=== PATIENT | female | born 1985 | race Caucasian/White ===

== ENCOUNTER 2016-07-12 09:28 | Emergency (ER) | payer SELFPAY ==
[2016-07-12 09:40] VITALS: BP 142/80
--- NOTE | 2016-07-12 10:17 | UC ---
Hand/Wrist HPI - HPI Summary HPI Summary: 30 yo femal injuried right thumb (base of 1st MC) about 1 1/2 mos ago (during sz ) she is right handed had marked bruising/swelling has been wearing a brace pain persists no thumb strength unable to electronic calibration technician/grab/lift - History Of Current Complaint Chief Complaint: UCUpperExtremity Stated Complaint: WRIST AND THUMB PAIN Time Seen by Provider: 07/12/16 09:58 Hx Obtained From: Patient Hx Last Menstrual Period: 06/28/16 Onset/Duration: Sudden Onset, Lasting Weeks Severity Initially: Severe Severity Currently: Moderate Pain Intensity: 4 Pain Scale Used: 0-10 Numeric Character Of Pain: Aching, Throbbing Aggravating Factor(s): Movement, Lifting, Pulling Alleviating: Rest Associated Signs And Symptoms: Positive: Swelling - initially, Bruising - initially Related History: Dominant Hand Right - Allergies/Home Medications Allergies/Adverse Reactions: Allergies Allergy/AdvReac Type Severity Reaction Status Date / Time Carbamazepine [From Tegretol] Allergy Intermediate Rash Verified 11/22/14 12:36 Valproic Acid [From Depakote] Allergy Intermediate Rash Verified 11/22/14 12:36 Home Medications: Home Medications Lamotrigine [Lamictal] 75 mg PO 07/12/16 [History] PMH/Surg Hx/FS Hx/Imm Hx Previously Healthy: Yes Neurological History Of: Reports: Seizures Psychological History Of: Reports: Anxiety - Surgical History Surgical History: Yes Surgery Procedure, Year, and Place: CSECTION X 3 - Family History Known Family History: Positive: Hypertension - Social History Alcohol Use: None Substance Use Type: None Smoking Status (MU): Current Every Day Smoker Type: Cigarettes Amount Used/How Often: 1/2 ppd Length of Time of Smoking/Using Tobacco: years Have You Smoked in the Last Year: Yes Household Exposure Type: Cigarettes - Immunization History Most Recent Influenza Vaccination: declined last season Most Recent Tetanus Shot: unsure, declined in Most Recent Pneumonia Vaccination: never Review of Systems Constitutional: Negative Skin: Bruising - resolved Eyes: Negative ENT: Negative Respiratory: Negative Cardiovascular: Negative Gastrointestinal: Negative Genitourinary: Negative Motor: Negative Neurovascular: Negative Musculoskeletal: Arthralgia Neurological: Negative Psychological: Negative All Other Systems Reviewed And Are Negative: Yes Physical Exam Triage Information Reviewed: Yes Appearance: Well-Appearing, No Pain Distress, Well-Nourished Vital Signs: Initial Vital Signs Temp 98.5 F 07/12/16 09:34 Pulse 88 07/12/16 09:34 Resp 18 07/12/16 09:34 BP 142/80 07/12/16 09:34 Pulse Ox 99 07/12/16 09:34 Vital Signs Reviewed: Yes Eyes: Positive: Conjunctiva Clear ENT: Positive: Hearing grossly normal. Negative: Nasal congestion, Nasal drainage, Trismus, Muffled/hoarse voice Neck exam: Normal Neck: Positive: Supple Respiratory: Positive: Lungs clear, Normal breath sounds, No respiratory distress Cardiovascular: Positive: RRR Musculoskeletal Exam: Normal Musculoskeletal: Positive: ROM Limited @ - right thumb Neurological: Positive: Alert, Other: - tender thenar eminence Psychological Exam: Normal Skin Exam: Normal Skin: Positive: rashes Hand/Wrist Course/Dx - Differential Dx/Diagnosis Provider Diagnoses: right thumb injury. suspect torn ligaments Discharge - Discharge Plan Condition: Stable Disposition: HOME Patient Education Materials: Skier's Thumb (ED) Referrals: Hugo Tucker MD [Medical Doctor] - As Soon As Possible (call today and make an appt for next week) Additional Instructions: thumb spica splint no fracture noted I am worried that you have torn some ligaments I suggest ortho follow up (Dr. Tucker)
--- NOTE | 2016-07-12 10:40 | RAD ---
INDICATION: Right hand pain. Injury 1 1/2 months ago COMPARISON: None TECHNIQUE: AP, lateral, and oblique views were obtained. FINDINGS: There are no acute bony findings. There is minor osteocytic change about the radiocarpal joint and there is minor cystic change involving the navicular. The soft tissues are normal. IMPRESSION: NO ACUTE BONY FINDINGS.
== END 2016-07-12 10:50 | disposition home or self-care (01) ==
LOC: UCEAST 09:28
DX: S69.91XA Unspecified injury of right wrist, hand and finger(s), initial encounter (principal); X58.XXXA Exposure to other specified factors, initial encounter; Y93.9 Activity, unspecified; Y92.9 Unspecified place or not applicable; Z88.8 Allergy status to other drugs, medicaments and biological substances; F17.210 Nicotine dependence, cigarettes, uncomplicated
CPT/HCPCS: 99213; G0463

== ENCOUNTER → 2016-07-23 10:09 | Day surgery (SDC) | payer MEDICAID ==
--- NOTE | 2016-07-18 09:46 | HP ---
PREOPERATIVE HISTORY AND PHYSICAL: DATE OF SURGERY/ADMISSION: 07/23/[address] [facility] NEUROLOGIST: Dr. Carmona. PRIMARY CARE PHYSICIAN: Dr. Barney. PROCEDURE: Right wrist de Quervain's release, ganglion cyst excision. CHIEF COMPLAINT: Right wrist pain, cyst right wrist. HISTORY OF PRESENT ILLNESS: This is a 30-year-old female, who complains of pain at the radial aspect of her right wrist. She also has a lump in the area as well and trouble with any motion of her thumb. This has been ongoing for approximately 6 weeks. She denies any specific injury. She has been wearing a thumb spica brace for several days now; however, it has not alleviated her symptoms. She denies any associated numbness or tingling. The pain is significant enough that she would like to proceed with surgical intervention at this time in the form of a right wrist de Quervain's release and also have the mass removed at the same time. PAST MEDICAL HISTORY: 1. History of seizure disorder, which started approximately 6 years ago. The patient reports she has had approximately 5 or 6 seizures, most recent one was 1 month ago. 2. Anxiety. PAST SURGICAL HISTORY: x3. CURRENT MEDICATIONS: Lorazepam 0.5 mg daily. ALLERGIES: 1. DEPAKOTE. 2. LEVETIRACETAM. Both cause throat swelling. FAMILY MEDICAL HISTORY: Brain cancer on paternal side. 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 She is a current smoker and reports smoking since age 12, approximately half pack per day. She denies recreational drug use. Alcohol intake on very rare occasion. REVIEW OF SYSTEMS: General: Negative for fevers, chills or night sweats. No known anesthesia problems. HEENT: Negative for headaches, lightheadedness or syncopal episodes. Integumentary: Negative for abrasions, lesions or open wounds. Cardiothoracic: Negative for chest pain, palpitations or edema. Negative for hypertension. Pulmonary: Negative for shortness of breath with exertion, chronic cough or COPD. GI: Negative for nausea, vomiting, diarrhea, constipation or GERD. : Negative for nocturia, urinary frequency, urgency, history of UTIs or kidney problems. Musculoskeletal: Positive for current complaint. Negative for chronic or intermittent back pain or history of fractures. Neurological: Positive for history of seizures. Negative for paresthesias, numbness, history of stroke. Endocrine: Negative for diabetes or thyroid issues. Hematologic: Negative for easy bruising, anemia, excessive bleeding or history of DVT. Infectious Disease: Negative for history of MRSA, hepatitis C or HIV. PHYSICAL EXAMINATION GENERAL: A well-developed, well-nourished 30-year-old female, in no acute distress. VITAL SIGNS: Height 5 feet 6-1/2 inches, weight 145 pounds. Pulse rate 68, blood pressure 108/60. HEENT: Normocephalic, atraumatic. Pupils equal, round and reactive to light and accommodation. NECK: Supple. No palpable lymph nodes. Throat is clear. PULMONARY: Lungs are clear to auscultation bilaterally. No wheezes, rales or rhonchi. CARDIOTHORACIC: Regular rate and rhythm. S1 and S2. No murmurs, rubs or gallops. No edema. ABDOMEN: Positive bowel sounds. Soft, nontender. NEUROLOGIC: Alert and oriented x3. Cranial nerves II through XII are intact. Sensation is intact to light touch. MUSCULOSKELETAL: On exam of her right wrist, there is a ganglion cyst located on the volar radial aspect, which is minimally tender to palpation. She has marked tenderness of the first dorsal compartment and a positive Puma test. There is also mild swelling in the area. Neurovascular function is intact. Skin is intact. She had decreased range of motion and increased pain with motion of the right thumb. IMPRESSION: Right volar ganglion cyst and de Quervain's tenosynovitis. PLAN/RECOMMENDATIONS: The patient is scheduled to undergo a right wrist de Quervain's release, ganglion cyst excision with Dr. Tovar on 07/23/16. She will return to the office 10 to 14 days postop for followup and suture removal. A prescription for Tylenol No. 3 was e-scribed to the patient's pharmacy for postoperative pain management. The patient will obtain clearance from her primary care physician, Dr. Barney, prior to proceeding with surgery. MAMI NAGY [id number]/[facility] #: [id number] [facility] HOSPITALHuong
[~2016-07-23 10:09] MED LIST: Acetaminophen TAB* 325 MG PO PRN; Buffered Lidocaine 1% SYRIN* 3 ML/SYR SYRINGE INTRADERM ONE; DiMENhydriNATE IV* 50 MG/ML VIAL IV PUSH PRN; Famotidine IV* 10 MG/ML 2 ML (20 mg) ONE; Ketorolac INJ* 30 MG/ML 1 ML VIAL ONE; Lidocaine 1% INJ* 10 MG/ML 30 ML SDV ONE; Lidocaine 2% PF* 5 ML VIAL ONE; Midazolam* 1 MG/ML 2 ML VIAL (2 MG) ONE; Ondansetron INJ* 2 MG/ML VIAL IV PRN; PROCHLORPERAZINE INJ 5 MG/ML 2 ML VIAL IV PRN; Propofol* 10 MG/ML 20 ML BTL IV PUSH ONE; fentaNYL* 50 MCG/ML 2 ML VIAL (100 MCG VIAL) IV PRN; fentaNYL* 50 MCG/ML 2 ML VIAL (100 MCG VIAL) ONE; oxyCODONE TAB* 5 MG TAB PO PRN
[2016-07-23 14:31] VITALS: BP 118/67
--- NOTE | 2016-07-24 02:00 | OP ---
DATE OF OPERATION: 07/23/16 [facility] DATE OF : 83 SURGEON: Arabella Tovar MD RESIDENT SERVICES DIRECTOR: MAMI Prasad ANESTHESIOLOGIST: Dr. Feliz ANESTHESIA: Local MAC. PRE-OP DIAGNOSES: Right de Quervain's tenosynovitis and right wrist ganglion. POST-OP DIAGNOSES: Right de Quervain's tenosynovitis and right wrist ganglion. OPERATIVE PROCEDURE: Remove right wrist ganglion and right de Quervain's release. INDICATIONS: Aracelis is a 30-year-old female who has pain in the radial aspect of her right wrist. She has a palpable ganglion cyst and de Quervain's tenosynovitis by exam. She presents for de Quervain's release and ganglion cyst excision. ESTIMATED BLOOD LOSS: Zero. TOURNIQUET TIME: 15 minutes. DESCRIPTION OF PROCEDURE: The patient was brought to the operating room and was given a sedation anesthetic and a local infiltration of 10 cc of 1% plain lidocaine. The skin of her right upper extremity was prepped and draped in the usual sterile fashion. The hand and forearm were exsanguinated and the tourniquet elevated to 250 mmHg. A Chevron incision was made over the palpable cyst and we dissected bluntly through the subcutaneous tissue. The radial artery was retracted and the ganglion cyst, which was a broad-based cyst emanating from the volar wrist capsule, was removed with a small portion of the wrist capsule. The edges of the capsule were cauterized with a Bovie. Next, we retracted the skin and we were able to gain access to the first dorsal compartment. Branches of the radial sensory nerve were retracted. The first dorsal compartment was incised longitudinally, completely releasing the APL and EPB tendons, which were in good condition. There was a small amount of tenosynovitis. The wound was irrigated and the skin edges reapproximated with 4 -0 nylon suture. The wound was dressed with Xeroform, 4x4, Webril, and an Carmelo wrap. The patient tolerated the procedure well and was brought to the recovery room in good condition. [id number]/[facility] #: [id number] [facility]ENTER[facility]
== END | disposition home or self-care (01) ==
LOC: OREAST 10:09
PROVIDERS: ATTEND Orthopaedic Surgery
DX: M65.4 Radial styloid tenosynovitis [de Quervain] (principal); M67.431 Ganglion, right wrist; G40.909 Epilepsy, unspecified, not intractable, without status epilepticus; F41.9 Anxiety disorder, unspecified; F17.200 Nicotine dependence, unspecified, uncomplicated
CPT/HCPCS: 88304; J1885; J2001; J2250; J2704; J3010

== ENCOUNTER 2017-10-27 17:02 | Emergency (ER) | payer MEDICAID ==
[2017-10-27 17:17] VITALS: BP 160/100
[2017-10-27] MEDS ORDERED: Ibuprofen TAB* 600 MG PO ONE (17:18)
--- NOTE | 2017-10-27 17:47 | RAD ---
Indication: Right wrist pain 3 views of the wrist demonstrates no fracture. No other bone or joint abnormality is identified. IMPRESSION: NO FRACTURE OF THE WRIST IS NOTED.
--- NOTE | 2017-10-27 19:21 | UC ---
Janet Austin Emily, scribed for Darwin Pearce MD on 10/27/17 at 1719 . Hand/Wrist HPI - HPI Summary HPI Summary: This patient is a 32 year old F presenting to [facility] care with a chief complaint of R wrist pain that began 10/23/2017 after picking up a heavy container of ice cream. The patient rates the pain 7/10 in severity. Symptoms aggravated by movement. Symptoms alleviated by nothing. Patient reports edema and tingling in fingers. Pt reports she had a previous surgery, one year ago, on the R wrist due to an injured tendon and a cyst. She reports the symptoms being similar to the pain prior to surgery. Allergies reviewed. Medications reviewed. - History Of Current Complaint Stated Complaint: WRIST INJURY Time Seen by Provider: 10/27/17 17:12 Hx Obtained From: Patient Hx Last Menstrual Period: 06/28/16 ?: No Onset/Duration: Sudden Onset, Lasting Days, Still Present Severity Initially: Moderate Severity Currently: Moderate Pain Intensity: 7 Pain Scale Used: 0-10 Numeric Aggravating Factor(s): Movement Alleviating Factor(s): Nothing Associated Signs And Symptoms: Positive: Swelling, Numbness/Tingling - Allergies/Home Medications Allergies/Adverse Reactions: Allergies Allergy/AdvReac Type Severity Reaction Status Date / Time divalproex sodium Allergy Severe throat Verified 10/27/17 17:56 [From Depakote] swelling carbamazepine [From Tegretol] Allergy Intermediate Rash Verified 10/27/17 17:56 PMH/Surg Hx/FS Hx/Imm Hx Previously Healthy: No Neurological History: Seizures Psychological History: Anxiety - Surgical History Surgical History: Yes Surgery Procedure, Year, and Place: 2004, 2009, 2014 X 3 [facility] - Family History Known Family History: Positive: Hypertension - Social History Occupation: Unemployed Lives: With Family Alcohol Use: None Substance Use Type: None Smoking Status (MU): Light Every Day Tobacco Smoker Type: Cigarettes Amount Used/How Often: 1/2 ppd 15 YRS Length of Time of Smoking/Using Tobacco: years Have You Smoked in the Last Year: Yes Household Exposure Type: Cigarettes - Immunization History Most Recent Influenza Vaccination: declined last season Most Recent Tetanus Shot: unsure, declined in Most Recent Pneumonia Vaccination: never Review of Systems Musculoskeletal: Edema, Other: - Positive R wrist pain Neurological: Other - Positive tingling in fingers All Other Systems Reviewed And Are Negative: Yes Physical Exam - Summary Physical Exam Summary: General: well-appearing, no pain distress Skin: warm, color reflects adequate perfusion, dry Head: normal Eyes: EOMI, INEZ ENT: normal Neck: supple, nontender Respiratory: CTA, breath sounds present Cardiovascular: RRR Abdomen: soft, nontender Bowel: present Musculoskeletal: R wrist is swollen, worst swelling in the distal radius and base of the thumb. Tender to palpation at the swollen areas and with ROM of thumb and index fingers. Slightly decreased capillary refill of the thumb. No sensation deficit. Neurological: sensory/motor intact, A&O x3 Psychological: affect/mood appropriate Triage Information Reviewed: Yes Vital Signs: Initial Vital Signs Temp 99.6 F 10/27/17 17:10 Pulse 87 10/27/17 17:10 Resp 16 10/27/17 17:10 BP 160/100 10/27/17 17:10 Pulse Ox 99 10/27/17 17:10 Vital Signs Reviewed: Yes Diagnostics - Radiology Wrist XR Radiology Interpretation Completed By: Radiologist - Wrist XR reveals, per radiologist, no fracture of the wrist is noted. ED physician has reviewed this radiology report. Re-Evaluation - Re-Evaluation First Eval Re-Evaluation Time: 17:53 Change: Unchanged Comment: Discussed results and plan of care with pt Hand/Wrist Course/Dx - Course Course Of Treatment: THUMB SPICA SPLINT PLACED. F/U ORTHO; RECHECK SOONER IF NEEDED. - Differential Dx/Diagnosis Provider Diagnoses: RIGHT WRIST SPRAIN Discharge - Sign-Out/Discharge Documenting (check all that apply): Discharge/Admit/Transfer - Discharge Plan Condition: Stable Disposition: HOME Prescriptions: HYDROcodone/ACETAMIN 5-325 MG* [[place] 5-325 TAB*] 1 tab PO Q4H PRN #30 tab MDD 6 PRN Reason: Pain Naproxen [Naproxen Enteric Coated 500 MG TAB] 500 mg PO BID #30 tablet. Patient Education Materials: Wrist Sprain (ED) Referrals: Amarjit Barney MD [Primary Care Provider] - Arabella Tovar MD [Medical Doctor] - Additional Instructions: FOLLOW UP WITH ORTHOPEDICS. GET RECHECKED FOR ANY WORSENING OF YOUR CONDITION OR QUESTIONS OR CONCERNS. - Billing Disposition and Condition Condition: STABLE Disposition: Home The documentation as recorded by the Janet laguna Emily accurately reflects the service I personally performed and the decisions made by me, Darwin Pearce MD.
== END 2017-10-27 18:05 | disposition home or self-care (01) ==
LOC: UCEAST 17:02
DX: S63.501A Unspecified sprain of right wrist, initial encounter (principal); F17.210 Nicotine dependence, cigarettes, uncomplicated; Z88.8 Allergy status to other drugs, medicaments and biological substances; Z86.69 Personal history of other diseases of the nervous system and sense organs; X50.0XXA Overexertion from strenuous movement or load, initial encounter; Y92.9 Unspecified place or not applicable
CPT/HCPCS: 99213; A9270-GY; G0463

== ENCOUNTER 2018-01-30 10:48 | Emergency (ER) | payer OTHER ==
[2018-01-30 11:13] VITALS: BP 121/84
--- NOTE | 2018-01-30 11:21 | UC ---
UC General HPI - HPI Summary HPI Summary: Patient is complaining of 2 day history of sore throat, fever and some blisters to the top of her mouth on the left. She notes the blisters may have been irritation from her tongue ring which she has since removed area. Patient admits to congested cough and some wheezing. She denies any history of asthma but is a smoker. She did take an albuterol nebulizer treatment which she has for one of her children and notes that was very helpful and she raised large amount of sputum after. - History of Current Complaint Chief Complaint: UCRespiratory Stated Complaint: ST/COUGH/FEVER Time Seen by Provider: 01/30/18 11:09 Hx Obtained From: Patient, Family/Tilting Head Band Sawyer Hx Last Menstrual Period: 01/29/18 Onset/Duration: Gradual Onset Timing: Constant Pain Intensity: 5 Associated Signs & Symptoms: Positive: Cough, Fever - Allergy/Home Medications Allergies/Adverse Reactions: Allergies Allergy/AdvReac Type Severity Reaction Status Date / Time divalproex sodium Allergy Severe throat Verified 01/30/18 11:10 [From Depakote] swelling carbamazepine [From Tegretol] Allergy Intermediate Rash Verified 01/30/18 11:10 PMH/Surg Hx/FS Hx/Imm Hx Neurological History: Seizures - Surgical History Surgical History: Yes Surgery Procedure, Year, and Place: 2004, 2009, 2014 X 3 [facility]. right wrist 08/2016 - Family History Known Family History: Positive: Hypertension - Social History Lives: With Family Alcohol Use: Rare Substance Use Type: None Smoking Status (MU): Light Every Day Tobacco Smoker Type: Cigarettes Amount Used/How Often: 1/2 ppd 15 YRS Length of Time of Smoking/Using Tobacco: years Have You Smoked in the Last Year: Yes Household Exposure Type: Cigarettes - Immunization History Most Recent Influenza Vaccination: declined last season Most Recent Tetanus Shot: 2014 Most Recent Pneumonia Vaccination: never Vaccination Up to Date: Yes Review of Systems Constitutional: Negative Skin: Negative Eyes: Negative ENT: Sore Throat Respiratory: Shortness Of Breath, Cough Cardiovascular: Negative Gastrointestinal: Negative Genitourinary: Negative Motor: Negative Neurovascular: Negative Musculoskeletal: Negative Neurological: Negative Psychological: Negative Is Patient Immunocompromised?: No All Other Systems Reviewed And Are Negative: Yes Physical Exam Triage Information Reviewed: Yes Appearance: Well-Appearing Vital Signs: Initial Vital Signs Temp 99.5 F 01/30/18 11:07 Pulse 82 10/05/18 11:07 Resp 18 01/30/18 11:07 BP 121/84 01/30/18 11:07 Pulse Ox 100 01/30/18 11:07 Vital Signs Reviewed: Yes Eyes: Positive: Conjunctiva Clear ENT: Positive: Pharyngeal erythema, TMs normal, Other - Left side of the hard palate has 3 small areas were patient notes the blisters had ruptured. There is no drainage.. Negative: Nasal congestion, Nasal drainage Neck: Positive: Supple, Tenderness @ - Peritonsillar nodes which are enlarged Respiratory: Positive: Lungs clear, Normal breath sounds Cardiovascular: Positive: RRR, No Murmur Abdomen Description: Positive: Nontender, No Organomegaly, Soft Bowel Sounds: Positive: Present Musculoskeletal: Positive: ROM Intact Neurological: Positive: Alert Psychological: Positive: Age Appropriate Behavior Skin Exam: Normal Diagnostics - Laboratory Diagnostic Studies Completed/Ordered: rapid strep=neg Course/Dx - Course Course Of Treatment: rapid strep=neg. tx supportive. - Differential Dx - Multi-Symptom Provider Diagnoses: Pharyngitis, stomatitis, bronchitis Discharge - Sign-Out/Discharge Documenting (check all that apply): Patient Departure All imaging exams completed and their final reports reviewed: No Studies - Discharge Plan Condition: Stable Disposition: HOME Prescriptions: Albuterol HFA INHALER* [Ventolin HFA Inhaler*] 2 puff INH Q6H #1 mdi Magic Mouth Was-SHARLA/MAAL/LIDO* 5 ml SWISH SPIT QID 5 Days #120 ml Patient Education Materials: Acute Bronchitis (ED), Pharyngitis (ED) Referrals: Amarjit Barney MD [Primary Care Provider] - 7 Days - Billing Disposition and Condition Condition: STABLE Disposition: Home
== END 2018-01-30 11:57 | disposition home or self-care (01) ==
LOC: UCCORT 10:48
DX: J02.9 Acute pharyngitis, unspecified (principal); K12.1 Other forms of stomatitis; J40 Bronchitis, not specified as acute or chronic; F17.210 Nicotine dependence, cigarettes, uncomplicated; Z88.8 Allergy status to other drugs, medicaments and biological substances
CPT/HCPCS: 87651; 99212; G0463

== ENCOUNTER 2018-05-19 19:58 | Emergency (ER) | payer OTHER ==
[2018-05-19 20:10] VITALS: BP 131/90
[2018-05-19] MEDS ORDERED: Ketorolac INJ* 60 MG/2 ML VIAL IM ONE (20:29)
--- NOTE | 2018-05-19 20:54 | UC ---
Back Pain HPI - HPI Summary HPI Summary: ONSET OF RIGHT LOW BACK PAIN RADIATING DOWN HER LEG THAT STARTED 1 WEEK AGO. PATIENT DENIES ANY ACUTE INJURY OR TRAUMA ALTHOUGH SHE DOES STATE SHE MOVES THE FURNITURE AROUND HER HOUSE A LOT. SHE ALSO REPORTS A PALPABLE LUMP IN HER RIGHT LOW BACK WHICH SHE REPORTS IS TENDER AND SEEMS TO BE THE SOURCE OF MOST OF HER DISCOMFORT. NO WEAKNESS OR NUMBNESS. NO SADDLE ANESTHESIA. NO LOSS OF BOWEL OR BLADDER CONTROL. - History of Current Complaint Chief Complaint: UCBackPain Stated Complaint: HIP AND BACK INJURY Time Seen by Provider: 05/19/18 20:07 Hx Obtained From: Patient, Family/Harnessmaker - NIECE Hx Last Menstrual Period: last week Onset/Duration: Gradual Onset, Lasting Days, Still Present Timing: Constant Severity Initially: Moderate Severity Currently: Moderate Pain Intensity: 10 Pain Scale Used: 0-10 Numeric Back Pain: Is Discrete @ - RIGHT LOW BACK, Radiates To - LOWER LEG Character: Sharp Aggravating Factor(s): Movement Alleviating Factor(s): Rest, Position Associated Signs And Symptoms: Negative: Swelling, Redness, Weakness, Numbness, Tingling - Allergies/Home Medications Allergies/Adverse Reactions: Allergies Allergy/AdvReac Type Severity Reaction Status Date / Time divalproex sodium Allergy Severe throat Verified 05/19/18 20:03 [From Depakote] swelling carbamazepine [From Tegretol] Allergy Intermediate Rash Verified 05/19/18 20:03 Home Medications: Home Medications Lamotrigine XR (NF) [Lamictal XR (NF)] 125 mg PO DAILY 05/19/18 [History Confirmed 05/19/18] PMH/Surg Hx/FS Hx/Imm Hx Neurological History: Seizures - Surgical History Surgical History: Yes Surgery Procedure, Year, and Place: 2004, 2009, 2014 X 3 [facility]. tubes tied. right wrist 08/2016 - Family History Known Family History: Positive: Hypertension - Social History Alcohol Use: Rare Substance Use Type: Marijuana Smoking Status (MU): Light Every Day Tobacco Smoker Type: Cigarettes Amount Used/How Often: 1/2 ppd 15 YRS Length of Time of Smoking/Using Tobacco: years Have You Smoked in the Last Year: Yes Household Exposure Type: Cigarettes - Immunization History Most Recent Influenza Vaccination: declined last season Most Recent Tetanus Shot: 2014 Most Recent Pneumonia Vaccination: never Vaccination Up to Date: Yes Review of Systems All Other Systems Reviewed And Are Negative: Yes Constitutional: Positive: Negative Skin: Positive: Other - NODULE LOW BACK Respiratory: Positive: Negative Cardiovascular: Positive: Negative Gastrointestinal: Positive: Negative Musculoskeletal: Positive: Decreased ROM Neurological: Positive: Paresthesia Physical Exam Triage Information Reviewed: Yes Appearance: Well-Nourished, Pain Distress - MODERATE Vital Signs: Initial Vital Signs Temp 98.4 F 05/19/18 20:02 Pulse 90 05/19/18 20:02 Resp 18 05/19/18 20:02 BP 131/90 05/19/18 20:02 Pulse Ox 99 05/19/18 20:02 Vital Signs Reviewed: Yes Eyes: Positive: Conjunctiva Clear ENT: Positive: Hearing grossly normal Neck: Positive: Supple Respiratory: Positive: No respiratory distress, No accessory muscle use Cardiovascular: Positive: Pulses Normal, Brisk Capillary Refill Abdomen Description: Positive: Soft Musculoskeletal: Positive: No Edema, ROM Limited @ - BACK, Other: - TENDER FIBROUS NODULE IN SOFT TISSUES RIGHT LOW BACK Neurological: Positive: Alert, Other: - NEG STRAIGHT LEG RAISE Psychological: Positive: Normal Response To Family, Age Appropriate Behavior Skin: Negative: Rashes Back Pain Course/Dx - Course Course Of Treatment: PATIENT RECEIVED IM TORADOL TODAY. WILL TRY SKELAXIN AND PREDNISONE ALONG WITH NSAIDS. ALSO ADVISED STRETCHING, HEAT AND MASSAGE. IF HER SYMPTOMS DO NOT IMPROVE WITH THIS MANAGEMENT WOULD RECOMMEND SHE FOLLOW UP WITH HER PCP AND CONSIDER MORE ADVANCED IMAGING OF THE AREA. PT STATES HER FOOT FEELS COOL BUT ON EXAM IT IS PINK, 2+ DP PULSES AND BRISK CAP REFILL. LOW CONCERN FOR PVD. SHE DOES HAVE A PALPABLE NODULE IN THE RIGHT LOW BACK THAT IS TENDER. PATIENT STATES THAT THIS IS THE MAIN SOURCE OF HER DISCOMFORT. DISCUSSED THE POSSIBILITY OF A "BACK MOUSE" HOWEVER RECOMMENDED THAT MORE TRADITIONAL DIAGNOSES BE RULED OUT AND CONSIDERED PRIOR TO SETTLING ON THIS A DIAGNOSIS. - Differential Dx/Diagnosis Provider Diagnosis: Piriformis syndrome of right side Discharge - Sign-Out/Discharge Documenting (check all that apply): Patient Departure All imaging exams completed and their final reports reviewed: No Studies - Discharge Plan Condition: Stable Disposition: HOME Prescriptions: Metaxalone TAB* [Skelaxin TAB*] 800 mg PO BID PRN #30 tab PRN Reason: Pain Naproxen [Naproxen 500 mg tab] 500 mg PO BID PRN #30 tablet PRN Reason: Pain predniSONE TAB* [Deltasone 20 MG TAB*] 40 mg PO DAILY #10 tab Patient Education Materials: Piriformis Syndrome (ED) Referrals: Amarjit Barney MD [Primary Care Provider] - 1 Week Additional Instructions: FAILING IMPROVEMENT WITH TRADITIONAL CONSERVATIVE MANAGEMENT YOU MAY BENEFIT FROM MORE ADVANCED IMAGING AND CONSIDERATION OF BACK MOUSE THE CAUSE OF YOUR PAIN. BE SURE TO GO THROUGH SLOW RANGE OF MOTION AND STRETCHING EXERCISES DAILY. USE HEAT AND MASSAGE. BACK MOUSE Clinical findings of a rubbery, well-defined, often mobile, round or oval swelling in the deep subcutaneous tissues. Though these can be painful, they never show evidence of infection and are frequently asymptomatic. They occur most commonly in the sacroiliac region near the superior portion of the iliac crest. They are often palpated as rubbery nodules just under the skin. These nodules may mimic sciatic nerve root compression. They consist of a fibrous capsule containing fat divided by fibrous septa and some fine blood vessels and nerve fibers, and they usually have a stalk connecting them to the tissues below the deep fascial layers. The immediate relief of pain frequently produced by multiple needle puncture, compared with poor relief with a single puncture, suggests that the pain might be caused by raised intranodular pressure. - Billing Disposition and Condition Condition: STABLE Disposition: Home
--- NOTE | 2018-05-20 13:36 | UC ---
- Progress Note Progress Note: RECEIVED A CALL FROM PATIENT'S PHARMACY STATING THAT SKELAXIN IS NOT COVERED BY HER INSURANCE. REQUESTING CHANGE OF PRESCRIPTION TO TIZANIDINE. VERBAL ORDER GIVEN FOR TIZANIDINE 2 MG BY MOUTH 3 TIMES DAILY NEEDED. #20 WITH NO REFILLS. Course/Dx - Diagnoses Provider Diagnoses: Piriformis syndrome of right side Discharge - Sign-Out/Discharge Documenting (check all that apply): Post-Discharge Follow Up All imaging exams completed and their final reports reviewed: No Studies - Discharge Plan Condition: Stable Disposition: HOME Prescriptions: Metaxalone TAB* [Skelaxin TAB*] 800 mg PO BID PRN #30 tab PRN Reason: Pain Naproxen [Naproxen 500 mg tab] 500 mg PO BID PRN #30 tablet PRN Reason: Pain predniSONE TAB* [Deltasone 20 MG TAB*] 40 mg PO DAILY #10 tab Patient Education Materials: Piriformis Syndrome (ED) Referrals: Amarjit Barney MD [Primary Care Provider] - 1 Week Additional Instructions: FAILING IMPROVEMENT WITH TRADITIONAL CONSERVATIVE MANAGEMENT YOU MAY BENEFIT FROM MORE ADVANCED IMAGING AND CONSIDERATION OF BACK MOUSE THE CAUSE OF YOUR PAIN. BE SURE TO GO THROUGH SLOW RANGE OF MOTION AND STRETCHING EXERCISES DAILY. USE HEAT AND MASSAGE. BACK MOUSE Clinical findings of a rubbery, well-defined, often mobile, round or oval swelling in the deep subcutaneous tissues. Though these can be painful, they never show evidence of infection and are frequently asymptomatic. They occur most commonly in the sacroiliac region near the superior portion of the iliac crest. They are often palpated as rubbery nodules just under the skin. These nodules may mimic sciatic nerve root compression. They consist of a fibrous capsule containing fat divided by fibrous septa and some fine blood vessels and nerve fibers, and they usually have a stalk connecting them to the tissues below the deep fascial layers. The immediate relief of pain frequently produced by multiple needle puncture, compared with poor relief with a single puncture, suggests that the pain might be caused by raised intranodular pressure. - Billing Disposition and Condition Condition: STABLE Disposition: Home
== END 2018-05-19 20:54 | disposition home or self-care (01) ==
LOC: UCEAST 19:58
DX: G57.01 Lesion of sciatic nerve, right lower limb (principal); R56.9 Unspecified convulsions; Z88.8 Allergy status to other drugs, medicaments and biological substances; F17.210 Nicotine dependence, cigarettes, uncomplicated
CPT/HCPCS: 96372; 99212; G0463; J1885

== ENCOUNTER 2019-06-12 18:41 | Emergency (ER) | payer OTHER ==
--- OUTSIDE RECORDS SUMMARY | 2019-06-12 18:46 | XMS REPORT | Summary of Care ---
:1985 Author Organization [facility] Address [address] [facility] [address] [place] [address] Care Team Providers Name Role Phone Amarjit Barney Primary Care Provider Reason for Visit Reason Comments Medication Check pt presents for med check Encounter Details Date Type Department Care Team Description 04/16/2019 Office Visit [facility] Amarjit Barney MD Psychogenic nonepileptic seizure (Primary Dx); Practice [address] [facility] Tobacco user [address] [place] [address] [phone] Allergies Active Allergy Reactions Severity Noted Date Comments Depakote Anaphylaxis 10/24/2008 Sumatriptan Succinate Anaphylaxis 10/24/2008 documented as of this encounter (statuses as of 04/17/2019) Medications Medication Sig Dispensed Refills Start Date End Date Status nicotine Place 1 30 Patch 0 06/11/2018 Active transdermal Patch onto patch-daily skin DAILY. (NICODERM) 21 MG/24HR Transdermal PATCH 24 HR lamotrigine Take 1.5 45 Tab 2 02/25/2019 Active (LAMICTAL) 100 MG Tabs by Oral Tab mouth DAILY. escitalopram Take 1 Tab 30 Tab 1 04/16/2019 Active (LEXAPRO) 10 MG by mouth Oral Tab DAILY. LORazepam (ATIVAN) Take 1 Tab 45 Tab 0 04/16/2019 Active 1 MG Oral Tab by mouth EVERY EIGHT HOURS. Max Daily Amount: 3 mg. LORazepam (ATIVAN) Take 1 Tab 30 Tab 0 07/22/2016 04/16/2019 Discontinued 1 MG Oral Tab by mouth (Reorder) EVERY EIGHT HOURS. Max Daily Amount: 3 mg. oseltamivir Take 1 Cap 10 Cap 0 06/17/2018 04/16/2019 Discontinued (TAMIFLU) 75 MG by mouth Oral Cap DAILY. documented as of this encounter (statuses as of 04/17/2019) Active Problems Problem Noted Date Psychogenic nonepileptic seizure 04/17/2019 Tobacco user 12/17/2010 Pain in joint, shoulder region 03/26/2006 Insomnia Anxiety Headache(784.0) Seizure Overview: ROchestor testing=psychogenic but has abnml EEG as well documented as of this encounter (statuses as of 04/17/2019) Immunizations Name Administration Dates Next Due Influenza (IM) Preservative Free 02/15/2009 documented as of this encounter Social History Tobacco Use Types Packs/Day Years Used Date Current Every Day Smoker 1 15 Smokeless Tobacco: Never Used Tobacco Cessation: Ready to Quit: No; Counseling Given: Yes Alcohol Use Drinks/Week oz/Week Comments No 0 Standard drinks or equivalent 0.0 Sex Assigned at Date Recorded Not on file Job Start Date Occupation Industry Not on file Not on file Not on file Travel History Travel Start Travel End No recent travel history available. documented as of this encounter Last Filed Vital Signs Vital Sign Reading Time Taken Comments Blood Pressure 120/70 04/16/2019 11:28 AM EST Pulse 82 04/16/2019 11:28 AM EST Temperature - - Respiratory Rate - - Oxygen Saturation 99% 04/16/2019 11:28 AM EST Inhaled Oxygen Concentration - - Weight 69.6 kg (153 lb 6.4 oz) 04/16/2019 11:28 AM EST Height 172.1 cm (5' 7.75") 04/16/2019 11:28 AM EST Body Mass Index 23.5 04/16/2019 11:28 AM EST documented in this encounter Progress Notes Amarjit Barney MD - 04/16/2019 11:20 AM EST PATIENT: Aracelis Anderson : 1985 DATE OF SERVICE: 04/16/2019 CHIEF COMPLAINT: Chief Complaint Patient presents with Medication Check pt presents for med check Subjective HISTORY OF PRESENT ILLNESS: Aracelis Anderson is a 33-y.o. female. Has a hx of non elliptiform seizure like activity thought to be anxiety related. I ve tried celexa,and ativan in the past with limited success but hedged and tried lamictal as mood stablizer and anti epileptic medas the spells would have the family . She would use it however like a prn med . Pand been doing ok last few years But she has been having more stress with her dtr acting up . She is having spells especially when under stress So she restarted the lamictal but 150 mg a day and taking it regular at this dose she was having worse depression so she stopped it Her past included being raised in foster care and acting out as a teen. 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 Her dtr in some ways is acting like she did Past Medical History: Diagnosis Date Anxiety Back pain Epistaxis pyogenic granuloma tumpr Headache(784.0) Insomnia Pain in joint, shoulder region 03/26/2006 Seizure (HCC) ROchestor testing=psychogenic but has abnml EEG as well Tobacco abuse Family History Problem Relation Age of Onset Cancer Mother hx CA ? type Asthma Mother Allergies Mother Diabetes Mother GI Mother hx stomach problems Hypertension Mother Current Outpatient Medications Medication Sig lamotrigine (LAMICTAL) 100 MG Oral Tab Take 1.5 Tabs by mouth DAILY. LORazepam (ATIVAN) 1 MG Oral Tab Take 1 Tab by mouth EVERY EIGHT HOURS. Max Daily Amount: 3 mg. nicotine transdermal patch-daily (NICODERM) 21 MG/24HR Transdermal PATCH [address] 1 Patch onto skin DAILY. No current facility-administered medications for this visit. Allergies Allergen Reactions Depakote Anaphylaxis Sumatriptan Succinate Anaphylaxis Social History Socioeconomic History Marital status: Spouse name: Not on file Number of children: Not on file Years of education: Not on file Highest education level: Not on file Occupational History Not on file Social Needs Financial resource strain: Not on file Food insecurity Worry: Not on file Inability: Not on file Transportation needs Medical: Not on file Non-medical: Not on file Tobacco Use Smoking status: Current Every Day Smoker Packs/day: 1.00 Years: 15.00 Pack years: 15.00 Smokeless tobacco: Never Used Substance and Sexual Activity Alcohol use: No Alcohol/week: 0.0 standard drinks Drug use: No Sexual activity: Yes control/protection: Surgical Lifestyle Physical activity Days per week: Not on file Minutes per session: Not on file Stress: Not on file Relationships Social connections Talks on phone: Not on file Gets together: Not on file Attends jehovah's witness service: Not on file Active member of club or organization: Not on file Attends meetings of clubs or organizations: Not on file Relationship status: Not on file Intimate partner violence Fear of current or ex partner: Not on file Emotionally abused: Not on file Physically abused: Not on file Forced sexual activity: Not on file Other Topics Concern Back Care Not Asked Bike Helmet Not Asked Blood Transfusions Not Asked Caffeine Concern Yes Exercise Not Asked Hobby Hazards Not Asked International Travel Not Asked Service Not Asked Occupational Exposure Not Asked Seat Belt Not Asked Self-Exams Not Asked Sleep Concern Not Asked Special Diet Not Asked Stress Concern Not Asked Weight Concern Not Asked 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 last 2 weeks, have you been feeling down, depressed, anxious, or hopeless?: 2 Over the past 2 weeks, have you felt little interest or pleasure in doing things ?: 3 Trouble falling or staying asleep, or sleeping too much?: 3 Feeling tired or having little energy?: 3 Poor appetite or overeating?: 3 Feeling bad about yourself or that you are a failure or have let yourself or your family down?: 0 Trouble concentrating on things, such as reading the newspaper or watching TV?: 0 Moving or speaking so slowly that other people notice OR being fidgety and restless?: 0 Thoughts that you would be better off or of hurting yourself in some way?: 0 PHQ-9 TOTAL SCORE: 14 How difficult have these problems made it for you to do your work, take care of things at home or get along with people?: Very difficult In the past 2 years, have you felt depressed or sad most days, even if you felt ok?: No REVIEW OF SYSTEMS: ROS Objective PHYSICAL EXAM: VITALS: BP 120/70 (BP Location: Right arm, Patient Position: Sitting) | Pulse 82 | Ht 5' 7.75" (1.721 m) | Wt 153 lb 6.4 oz (69.6 kg) | SpO2 99% | BMI 23.50 kg/m Body mass index is 23.5 kg/m. Physical Exam Vitals signs reviewed. Constitutional: Appearance: She is not ill-appearing. Cardiovascular: Rate and Rhythm: Normal rate and regular rhythm. Pulmonary: Effort: Pulmonary effort is normal. No respiratory distress. Psychiatric: Comments: Dress and hygiene good Good eye contact Thoughts and speech normal Affect Appropriate Mood stressed ASSESSMENT / IMPRESSION: ICD-9-CM ICD-10-CM 1. Psychogenic nonepileptic seizure I still will hedge with lamictal as mood stablizer but 50 mg a day and start lexapro and give prn ativan as before . follow up 1 month 300.11 F44.5 2. Tobacco user Ready to quit: No Counseling given: Yes 305.1 Z72.0 Plan Author: Amarjit Barney MD 04/16/2019 11:47 documented in this encounter Plan of Treatment Date Type Specialty Care Team Description 05/20/2019 Office Visit Family Practice Amarjit Barney MD [address] [place] [address] [phone] Health Maintenance Due Date Last Done Comments PNEUMOCOCCAL 0-64 YRS (1 of 1990 - PPSV23) DTaP/Tdap/Td Vaccines ( - 10/10/1995 Tdap) PAP SMEAR 09/10/2014 09/11/2011 DEPRESSION SCREENING 04/16/2020 04/16/2019, 04/16/2019 INFLUENZA VACCINE (#1) 2020 02/15/2009 Postponed from 12/27/2018 (Patient refused) HEPATITIS A IMMUNIZATION Aged Out No longer eligible based SERIES on patient's age to complete this topic HPV IMMUNIZATION SERIES Aged Out No longer eligible based on patient's age to complete this topic MENINGOCOCCAL VACCINE IMM Aged Out No longer eligible based on patient's age to complete this topic documented as of this encounter Results Not on filedocumented in this encounter Visit Diagnoses Diagnosis Tobacco user Tobacco use disorder Psychogenic nonepileptic seizure documented in this encounter Guarantor Name Account Type Relation to Date of Phone Billing Patient Address Estrellita Anderson Personal/Family 1985 [phone] [address] (Home) [place], [place] [phone] (Work) documented as of this encounter
--- OUTSIDE RECORDS SUMMARY | 2019-06-12 18:46 | XMS REPORT | Summary of Care ---
:1985 Author Organization [facility] Address [address] [facility] [place] [address] Care Team Providers Name Role Phone Amarjit Barney Primary Care Provider Reason for Visit Reason Comments Follow Up pt presents for follow up with medication Encounter Details Date Type Department Care Team Description 05/20/2019 [facility] Amarjit Barney MD Seizure-like activity (HCC) (Primary Dx); Practice [address] [facility] Anxiety; [address] [place] [address] [place] [address] [phone] Allergies Active Allergy Reactions Severity Noted Date Comments Depakote Anaphylaxis 10/24/2008 Sumatriptan Succinate Anaphylaxis 10/24/2008 documented as of this encounter (statuses as of 05/20/2019) Medications Medication Sig Dispensed Refills Start Date End Date Status nicotine Place 1 30 Patch 0 06/11/2018 Active transdermal Patch onto patch-daily skin DAILY. (NICODERM) 21 MG/24HR Transdermal PATCH 24 HR lamotrigine Take 1.5 45 Tab 2 02/25/2019 Active (LAMICTAL) 100 MG Tabs by Oral Tab mouth DAILY. LORazepam (ATIVAN) Take 1 Tab 45 Tab 0 04/16/2019 Active 1 MG Oral Tab by mouth EVERY EIGHT HOURS. Max Daily Amount: 3 mg. escitalopram Take 1 Tab 30 Tab 1 05/20/2019 Active (LEXAPRO) 10 MG by mouth Oral Tab DAILY. lamotrigine Take 1 Tab 30 Tab 1 05/20/2019 Active (LAMICTAL) 100 MG by mouth Oral Tab DAILY. escitalopram Take 1 Tab 30 Tab 1 04/16/2019 05/20/2019 Discontinued (LEXAPRO) 10 MG by mouth (Reorder) Oral Tab DAILY. documented as of this encounter (statuses as of 05/20/2019) Active Problems Problem Noted Date Psychogenic nonepileptic seizure 04/17/2019 Tobacco user 12/17/2010 Pain in joint, shoulder region 03/26/2006 Insomnia Anxiety Headache(784.0) Seizure Overview: ROchestor testing=psychogenic but has abnml EEG as well documented as of this encounter (statuses as of 05/20/2019) Immunizations Name Administration Dates Next Due Influenza [...] Sign Reading Time Taken Comments Blood Pressure 102/72 05/20/2019 1:44 PM EST Pulse 75 05/20/2019 1:44 PM EST Temperature - - Respiratory Rate - - Oxygen Saturation 100% 05/20/2019 1:44 PM EST Inhaled Oxygen Concentration - - Weight 68.6 kg (151 lb 4.8 oz) 05/20/2019 1:44 PM EST Height 172.1 cm (5' 7.75") 05/20/2019 1:44 PM EST Body Mass Index 23.18 05/20/2019 1:44 PM EST documented in this encounter Progress Notes Amarjit Barney MD - 05/20/2019 2:00 PM EST PATIENT: Aracelis Anderson : 1985 DATE OF SERVICE: 05/20/2019 CHIEF COMPLAINT: Chief Complaint Patient presents with Follow Up pt presents for follow up with medication Subjective HISTORY OF PRESENT ILLNESS: Aracelis Anderson is a 33-y.o. female. At last visit we started her on lamictal 50 mg when her 150mg dose made her depressed. Also started lexapro. She had a good month overall but had a scary spellabout a week ago. She was waiting to the kids on the school bus and got a call from her oldest child who was at schoolwho said she was going to get into a fight. In the past her spells tend to be during stressful situations There is a video of her getting the call and you can see some strange behavior. She not recall any of it but the kids said she was trying to get into the barn to get her meds but they are not there . She walks differently and lost her phone She has not been depressed on lamictal 50 and lexapro 10. She only used xanax 1 x Past Medical History: Diagnosis Date Anxiety Back pain Epistaxis pyogenic granuloma tumpr Headache(784.0) Insomnia Pain in joint, shoulder region 03/26/2006 Seizure (HCC) ROchestor testing=psychogenic but has abnml EEG as well Tobacco abuse Family History Problem Relation Age of Onset Cancer Mother hx CA ? type Asthma Mother Allergies Mother Diabetes Mother GI Mother hx stomach problems Hypertension Mother Current Outpatient Medications Medication Sig escitalopram (LEXAPRO) 10 MG Oral Tab Take 1 Tab by mouth DAILY. lamotrigine (LAMICTAL) 100 MG Oral Tab Take 1.5 Tabs by mouth DAILY. lamotrigine (LAMICTAL) 100 MG Oral Tab Take 1 Tab by mouth DAILY. 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 Physical Exam Vitals signs reviewed. Constitutional: Appearance: She is not ill-appearing. Cardiovascular: Rate and Rhythm: Normal rate and regular rhythm. Psychiatric: Comments: Dress and hygiene good Good eye contact Thoughts and speech normal Affect Appropriate Mood normal ASSESSMENT / IMPRESSION: ICD-9-CM ICD-10-CM 1. Seizure-like activity (HCC) brought on by stress makes less likely to be eliptiform but still scary as she is not faking, It is a manifestation of anxiety Fugue like . Will go up on lamictal to 100 , stay on xanax and follow up 1 month 780.39 R56.9 2. Anxiety 300.00 F41.9 3. Tobacco user 305.1 Z72.0 Ready to quit: No Counseling given: Yes Plan Due for pap Author: Amarjit Barney MD 05/20/2019 14:32 documented in this encounter Plan of Treatment Health Maintenance Due Date Last Done Comments PNEUMOCOCCAL 0-64 YRS (1 of 1990 - PPSV23) DTaP/Tdap/Td Vaccines (1 - 10/10/1995 Tdap) PAP SMEAR 09/10/2014 09/11/2011 [...] filedocumented in this encounter Visit Diagnoses Diagnosis Seizure-like activity (HCC) Other convulsions Anxiety Anxiety state, unspecified Tobacco user Tobacco use disorder documented in this encounter Guarantor Name Account Type Relation to Date of Phone Billing Patient Address Estrellita Anderson Personal/Family 1985 [address] (Home) [place], [place] [phone] (Work) documented as of this encounter
[2019-06-12 19:01] VITALS: BP 144/98
--- NOTE | 2019-06-12 19:15 | UC ---
Back Pain HPI - HPI Summary HPI Summary: 33-year-old female presenting with progressive right lower back pain 2 weeks. Patient states pain has increased rapidly over the past few days. Patient states she feels as though there is a lump in her right lower back, "like something needs to be pushed back into place." Patient states she "cant describe the pain" but it is worse with standing up straight and sitting down. States the only way she can get it to go away completely is "curling up on the floor in the position." Notes radiating pain now the back of right leg at times. Denies numbness and tingling. Denies bowel or bladder incontinence. Denies known trauma or injury. States she has taken naproxen and tried stretching without relief. Denies back injury or trauma in the past. - History of Current Complaint Chief Complaint: UCBackPain Stated Complaint: BACK PAIN Hx Obtained From: Patient Hx Last Menstrual Period: Pain Intensity: 9 - Allergies/Home Medications Allergies/Adverse Reactions: Allergies Allergy/AdvReac Type Severity Reaction Status Date / Time divalproex sodium Allergy Severe throat Verified 06/12/19 19:01 [From Depakote] swelling carbamazepine [From Tegretol] Allergy Intermediate Rash Verified 06/12/19 19:01 Home Medications: Home Medications Escitalopram * [Lexapro 10 mg (NF)] 10 mg PO QAM 06/12/19 [History Confirmed ] Naproxen [Naproxen 500 mg tab] 500 mg PO BID 06/12/19 [History Confirmed ] PMH/Surg Hx/FS Hx/Imm Hx - Surgical History Surgical History: Yes Surgery Procedure, Year, and Place: 2004, 2009, 2014 X 3 [facility]. tubes tied. right wrist 08/2016 - Family History Known Family History: Positive: Hypertension - Social History Alcohol Use: Weekly Substance Use Type: None Smoking Status (MU): Light Every Day Tobacco Smoker Type: Cigarettes Amount Used/How Often: 1/2 ppd 15 YRS Length of Time of Smoking/Using Tobacco: years Have You Smoked in the Last Year: Yes Household Exposure Type: Cigarettes - Immunization History Most Recent Influenza Vaccination: declined last season Most Recent Tetanus Shot: 2014 Most Recent Pneumonia Vaccination: never Vaccination Up to Date: Yes Review of Systems All Other Systems Reviewed And Are Negative: Yes Constitutional: Positive: Negative. Negative: Fever, Chills Respiratory: Positive: Negative Cardiovascular: Positive: Negative Neurovascular: Positive: Negative Musculoskeletal: Positive: Arthralgia - right low back pain and "lump", Decreased ROM. Negative: Edema Neurological/Mental Status: Positive: Negative. Negative: Paresthesia, Numbness Physical Exam - Summary Physical Exam Summary: Vital Signs Reviewed: Yes A+Ox3, pain distress Eyes: Conjunctiva Clear ENT: Hearing grossly normal Neck: Positive: Supple Respiratory: Positive: No respiratory distress, No accessory muscle use + CTA throughout no w/r Cardiovascular: RRR nl s1, s2 no m/r CBT <2 sec Musculoskeletal Exam: +TTP of right lower back, spasm of right lower back, no erythema or ecchymosis, ROM lumbar back decreased due to pain, sensation grossly intact, no obvious lump or deformity appreciated Neurological: Positive: Alert, + sensation throughout Psychological: Positive: age appropriate behavior Skin: Positive: no rash, no ecchymosis Vital Signs: Initial Vital Signs Temp 99.4 F 06/12/19 18:57 Pulse 104 06/12/19 18:57 Resp 18 06/12/19 18:57 BP 144/98 06/12/19 18:57 Pulse Ox 100 06/12/19 18:57 Diagnostics - Radiology lumbarsacral Radiology Interpretation Completed By: Radiologist Summary of Radiographic Findings: FINDINGS: Vertebrae: Mild disc space narrowing at L5-S1. Mild anterior spur formation at other levels of the lumbar spine. No acute fracture or subluxation. Soft tissues: Normal. IMPRESSION: 1. Possible degenerative disc disease at L5-S1. 2. No acute fracture, subluxation, or destructive osseous lesion. Back Pain Course/Dx - Course Course Of Treatment: Patient presenting with progressive right lower back pain 2 weeks. Patient states that she believes there is a "lump, or something out of place on the right side." I initially reviewed the images with Dr. Mcbride and then requested [facility] review the images. Final report came back as likely degenerative disc disease and lumbar spine. I informed the patient that she could wait for the results from [facility] or be discharged home. Patient stated she would like to be discharged home and I informed her that I would notify her with any results that warranted immediate treatment. I provided patient with Flexeril to take home and take before bedtime. Possible allergy to Flexeril appeared because the patient is allergic to Tegretol. Upon further questioning, patient states reaction to Tegretol she believes is nausea and that her "only real allergy is Depakote." Patient states she is comfortable taking the Flexeril and verbally consented to taking it. I also provided patient with prescription for Flexeril and instructed to take before bed and not to operate any heavy machinery as it may cause drowsiness. - Differential Dx/Diagnosis Differential Diagnosis/HQI/PQRI: Arthritis, Herniated Disc, Strain, Sprain, Other - DDD, spasm Provider Diagnosis: Acute right-sided low back pain Discharge ED - Sign-Out/Discharge Documenting (check all that apply): Patient Departure All imaging exams completed and their final reports reviewed: Yes - Discharge Plan Condition: Stable Disposition: HOME Prescriptions: Cyclobenzaprine TAB* [Flexeril 10 MG TAB*] 10 mg PO BEDTIME PRN #6 tab PRN Reason: Spasms - Back Patient Education Materials: Acute Low Back Pain (ED), Lower Back Exercises (ED ) Referrals: [facility] [Outside] - If Needed Amarjit Barney MD [Primary Care Provider] - Additional Instructions: As discussed, your xrays did not show any abnormalities. You will be notified if any abnormalities are found on the final report. Take Flexeril at bedtime for muscle spasms. This may make you drowsy so do not drive or operate heavy machinery while taking it. Rest, heat, and continue with naproxen as directed to help alleviate pain symptoms. Refrain from strenuous physical activity until pain has resolved. You may perform mild lower back stretches. Follow up with the sports medicine referral listed below for further evaluation if pain is persistent. Go to the emergency room if you experience new or worsening symptoms, including increasing pain, inability to walk, fever, or bowel or bladder incontinence. - Billing Disposition and Condition Condition: STABLE Disposition: Home
[2019-06-12] MEDS ORDERED: Cyclobenzaprine TAB* 10 MG PO ONE (19:53)
== END 2019-06-12 20:26 | disposition home or self-care (01) ==
LOC: UCEAST 18:41
DX: M54.5 Low back pain (principal); F17.210 Nicotine dependence, cigarettes, uncomplicated; Z88.8 Allergy status to other drugs, medicaments and biological substances
CPT/HCPCS: 72110; 99212; A9270-GY; G0463